=== PATIENT | male | born 1970 | race Caucasian/White ===

== ENCOUNTER → 2016-09-06 | Outpatient (CLI) | payer OTHER ==
--- NOTE | 2016-09-10 13:55 | SS ---
ADMIT: 09/06/2016 RM/LOC: [facility] MR#: [id number] [facility] [address] [place] [id number] [address] [place] [address] Sleep Study SEX: M AGE: 45 : 1970 STUDY DATE: 09/06/2016 CLINICAL HISTORY: A 45-year-old male, body mass index of 28.9, 74 inches tall, 225 pounds. Symptoms of snoring and daytime somnolence, in the sleep lab for evaluation of obstructive sleep apnea. TECHNICAL DESCRIPTION: Diagnostic polysomnogram performed on night of 09/06/2016, attended by a trained microbiology technologist. DIAGNOSTIC POLYSOMNOGRAM FINDINGS: SLEEP: Total time in bed is 403 minutes, total sleep time 349.5 minutes, sleep efficiency 86.7%. 42.4% of time was spent in stage II sleep, 22.3% of time was spent in stage REM. BREATHING: [id number] obstructive sleep apnea with apnea-hypopnea index of 8.1. Supine apnea-hypopnea index of 20.7. Obstructive sleep apnea was predominantly positional. During the study, there were 7 central apneas, 11 obstructive apneas, and 29 obstructive hypopneas noted. OXYGEN SATURATION: Mean sleeping oxygen saturation is 93%. CARDIAC: Average heart rate is 61 beats per minute. MOVEMENTS/POSITION: During the study, the patient slept in the supine lateral position with periodic leg movement index of 19.6. IMPRESSION/PLAN: [id number]-[id number] predominant positional obstructive sleep apnea with apnea-hypopnea index of 8.1. Supine apnea-hypopnea index of 20.7. Recommend CPAP titration. Recommend losing weight. Recommend avoiding sedative and alcohol. Recommend refrain from driving if excessively sleepy. Recommend avoiding sleeping in supine position. Clinical correlation needed. CPAP titration is recommended. Sim Kuhn MD/ ernie JOB #: [id number] CC: Sim Cobb MD, Attending Physician Conner Mccloud MD, Family Physician Sim Cobb MD
== END | disposition home or self-care (01) ==
LOC: RESC 20:30
DX: R06.83 Snoring (principal); R40.0 Somnolence; G47.33 Obstructive sleep apnea (adult) (pediatric)